=== PATIENT | male | born 1985 | race Caucasian/White ===

== ENCOUNTER 2017-01-17 12:28 | Emergency (ER) | payer OTHER ==
--- NOTE | ~2017-01-17 | CT71 ---
[facility] A Service of [facility] RADIOLOGY TEXT RESULTS PATIENT: KIMBERLY CORDOBA LOCATION: SED : 87 UNIT #: [id number] AGE: [address]: Mateus Beth MD SEX: M ORDER DR: [id number] [address] [address] [id number] MR#: [id number] Acc #: [id number] NAME: KIMBERLY CORDOBA : 1985 SEX: M STUDY DATE/TIME: 01/17/2017 13:05 UNIT: SED ROOM: STUDY DESCRIPTION: CT Head Wo Contrast Attending Physician: Mateus Beth M.D. Ordering Physician: Mateus Beth M.D. MEDICAL IMAGING REPORT This report is preliminary unless electronic signature is present. EXAM CT head without contrast, dated 01/17/2017. COMPARISON None. HISTORY Left arm and leg tingling and numbness for [address] of the head was obtained without contrast in the axial plane. Axial noncontrast images were obtained from the skull base to the vertex. Ventricular size and configuration are normal. There is no evidence of acute infarct or hemorrhage. There are no extra-axial fluid collections. No mass lesion or mass effect is seen. There are no skull fractures. Nasal septum is deviated to the right with paranasal sinus mucosal thickening, particularly in bilateral ethmoid sinuses. IMPRESSION Normal noncontrast head CT. Dictated by... Sunshine Wylie M.D. THIS IS AN ELECTRONICALLY VERIFIED REPORT Sunshine Wylie M.D. at 01/18/2017 5:24 PM CPR/jt TD: 01/17/2017 16:23 JOB #: [id number] [facility] A Service [facility] RADIOLOGY TEXT RESULTS PATIENT: KIMBERLY CORDOBA LOCATION: SED : 87 UNIT #: [id number] AGE: [address]: Mateus Beth MD SEX: M ORDER DR: MEDICAL IMAGING REPORT Page 1 of 1
[2017-01-17] MEDS ORDERED: NO MEDICATIONS (12:39)
== END 2017-01-17 14:02 | disposition home or self-care (01) ==
LOC: SED 12:28
DX: R20.9 Unspecified disturbances of skin sensation (principal); F41.9 Anxiety disorder, unspecified; E78.5 Hyperlipidemia, unspecified; F17.200 Nicotine dependence, unspecified, uncomplicated
CPT/HCPCS: 70450; 99284